=== PATIENT | male | born 1955 | race Caucasian/White ===

== ENCOUNTER → 2024-01-19 09:04 | Outpatient (REF) | payer OTHER, SELFPAY | LOC: HWRAD 09:04 | PROVIDERS: ATTENDING PHYSICIAN Nurse Practitioner Adult Health; FAMILY PHYSICIAN Family Medicine | DX: C21.0 Malignant neoplasm of anus, unspecified (principal) | CPT/HCPCS: 71260; 74177; Q9967 ==

== ENCOUNTER → 2025-05-04 08:12 | Outpatient (REF) | payer OTHER, SELFPAY | LOC: RAD 08:12 | PROVIDERS: ATTENDING PHYSICIAN Internal Medicine Hematology & Oncology; FAMILY PHYSICIAN Family Medicine; REFERRING PHYSICIAN Family Medicine | DX: C21.0 Malignant neoplasm of anus, unspecified (principal); R22.1 Localized swelling, mass and lump, neck | CPT/HCPCS: 71260; 74177; 76536; Q9967 ==

== ENCOUNTER 2025-05-22 19:42 | Inpatient (IN) | payer OTHER, SELFPAY ==
[2025-05-22 17:41] VITALS: BP 180/164
[2025-05-22 17:48] VITALS: BP 180/164
[2025-05-22 17:52] VITALS: BMI 19.4
--- NOTE | 2025-05-22 18:12 | ED.MUSCINJ ---
HPI-Injury
General
Chief Complaint: Musculo-Skeletal Complaint
Source: patient
Exam Limitations: none
Time Seen by Provider: 05/22/25 17:46
Nursing documentation reviewed up to this point in time: agreed with
History of Present Illness-Injury
Is this injury a work related problem?: No
Is pt an associate of [facility]?: No
Initial Injury comments:
6-year-old male presents with left hip pain status post fall off his porch hours or so ago was on the ground, could not get up crawled on his elbows to get through the phone, apparently had a loose bowel movement comes in via EMS with left hip pain
normal mental status abrasions to his left greater than right arm covered in loose stool does have history of colorectal cancer scheduled for radiation tomorrow did not strike his head no alcohol no blood thinners
Past History
Past History
ED Past Medical History: Cancer
Social History
Tobacco: Non-smoker
Alcohol: None
Drug: None
Employment: Not employed
Review of Systems
Review of Systems
All Other Systems: Not applicable
Constitutional: Denies fever or fatigue
Cardiac: Reports no symptoms
ABD/GI: Reports diarrhea (After he fell)
Musculoskeletal: Reports joint pain
Phy Exam
Physical Exam
Physical Exam:
Physical Exam
General: 69-year-old male clear mental status no overt signs of head or neck
Neck: No tongue bite no posterior neck
Heart: Regular
Lungs: no acute respiratory distress. clear bilaterally
Abdomen: Soft nontender
Neuro: alert and oriented. no focal neurological deficits
Skin: no rash
Psychiatric: well kept. interactive and cooperative
Extremities: There are abrasions bilateral elbows, pain with internally rotated left hip
Injury Course
Orders/Labs/Results
Orders:
Orders
05/22/25 18:03
Hip, Left 2-3 Views [CR Hip - LT w/wo Pel 2-3 Vw*] Urgent
Comment:
Reason For Exam: fall
Include a pelvis x-ray?: Yes
05/22/25 18:04
0.9% Sodium Chloride 1000 ml [Nss] 1,000 ml IV BOLUS
HYDROmorphone [Dilaudid] 1 mg IV NOW STA
Tetanus/Diphth/Acelpertussis [Adacel] 0.5 ml IM .ONCE ONE
Elbow, 2 View, Right [CR Elbow - Right Min 2 View] Urgent
Comment:
Reason For Exam: fall
Elbow, Left, 2 View [CR Elbow - Left Min 2 View] Urgent
Comment:
Reason For Exam: fall
05/22/25 18:11
Type+Screen Urgent
CPK [Creatine Phosphokinase] Urgent
Complete Blood Count/With Diff Urgent
Comprehensive Metabolic Panel Urgent
05/22/25 18:15
STOOL [C difficile Antigen & Toxins] Urgent
JEREMIAH Source: Feces/Stool
Specimen Description:
Stool Culture Urgent
JEREMIAH Source: Feces/Stool
Specimen Description:
05/22/25 18:32
ABO2 Urgent
BBK Wristband Number:
Associate notified that ABO2 has been ordered: [id number]
Date: 05/22/25
Time: 18:32
Phlebotomy Manager ID: [id number]
05/23/25 06:00
Stool Culture IN AM
JEREMIAH Source: Feces/Stool
Specimen Description:
Abnormal Lab Results
05/22/25
18:11
RBC 4.10 L 10^6/uL
(4.70-6.10)
Hct 37.4 L %
(39.0-52.0)
MCH 33.7 H pg
(27.0-31.0)
Abs Immat Gran (auto) 0.1 H 10^3/uL
(0-0.05)
Absolute Neuts (auto) 7.6 H 10^3/uL
(1.4-6.5)
Absolute Lymphs (auto) 0.7 L 10^3/uL
(1.2-3.4)
Absolute Monos (auto) 0.8 H 10^3/uL
(0.1-0.6)
Immature Gran % 0.8 H %
(0-0.5)
Neutrophils % 82.0 H %
(42.2-75.2)
Lymphocytes % 7.0 L %
(20.5-51.1)
05/22/25 18:11
MDM/Problems Addressed
Differential Diagnosis Includes:
Hip fracture pelvic fracture hip dislocation femur fracture elbow injury with abrasion dehydration doubt rhabdo
MDM/Problems Addressed:
Fall hip pain elbow abrasion
Chronic conditions affecting care: Cancer
Acute Exacerbation and/or Progression of Chronic Illness: Cancer
*Radiology
Radiology exam reviewed: radiology read reviewed
*Pulse Oximetry
SaO2: 99
Oxygen Mode of Delivery: Room air
Patient hypoxic: no
*EKG
Interpreted by ED Provider?: Yes
Interpretation: abnormal
Comparison EKG: no comparison EKG present
Heart Rate: 78
Rate: normal
Rhythm: sinus
Ischemia: non-specific ST changes
*Paunch Trimmer Interpretation
Rate: normal
Interpretation: normal
Heart Rate: 78
Rhythm: sinus
*Critical Care Note
Total Time (30-74mins, 75-104mins- exclusive of procedures): Not Applicable
Data Reviewed
Source: patient
Update Note
Update Note:
Update x-rays noted no obvious injury to the elbows is a displaced intertrochanteric fracture on the left will require admission and operative repair
ED Attending Note
-
Portions of this chart may have been created with voice recognition software.� Occasional wrong word or��sound alike� substitutions may have occurred due to the inherent limitations of voice recognition software.
Discharge Plan
Departure
Prescriptions:
No Action
Lumigan 1 DROP drops
1 drp ophthalmic (eye) HS
dorzolamide-timolol 22.3-6.8 mg/mL Drops
1 drp OPHTHALMIC (EYE) QAM AND QPM
rosuvastatin 10 mg Tablet
10 mg PO DAILY
Referrals:
UNKNOWN - PT DOES,NOT KNOW [Family Provider]
Interventions
Interventions:
ED-Musculoskeletal Assessment Last Done: 05/22/25 17:53
Discharge Date and Time
Print Language: GEORGIAN
[2025-05-22] MEDS: NSS 1000 IV (18:16)
[2025-05-22] MEDS: DILAUDID 1 MG IV (18:16)
[2025-05-22 18:31] LABS: Hematocrit 37.4 % (39.0-52.0); Hemoglobin 13.8 g/dL (13.0-18.0); Mean Corp Hgb Conc. 36.9 g/dL (33.0-37.0); Mean Corpuscular Volume 91.2 fL (80.0-94.0); Nucleated Red Blood Cells % 0 % (-); Platelet Count 237 10^3/uL (130-400); Red Cell Dist. Width 13.3 % (11.5-14.5)
[2025-05-22 18:49] LABS: AST (SGOT) 28 U/L (17-59); Albumin 4.4 g/dl (3.5-5.0); Alkaline Phosphatase 58 U/L (38-126); Blood Urea Nitrogen 3 mg/dl (9-20); Carbon Dioxide 22 mmol/L (22-30); Chloride 97 mmol/L (98-107); Estimated Creatinine Clearance 88 ml/min; Glucose 109 mg/dl (70-99); Potassium 4.2 mmol/L (3.5-5.1); Sodium 126 mmol/L (135-145); Total Protein 6.8 g/dl (6.3-8.2); eGFR > 60.00
[2025-05-22 19:00] LABS: ALT (SGPT) 21 U/L (0-50); Calcium 9.1 mg/dl (8.4-10.2)
--- NOTE | 2025-05-22 19:05 | HPS.HSE ---
Family Physician
-
Family Physician: NOT KNOW UNKNOWN - PT DOES
Chief Complaint
-
Mechanical fall
History of Present Illness
This is a 69-year-old male with past medical history of hyperlipidemia, glaucoma, presenting to the emergency department following a mechanical fall with left-sided hip pain.
Patient apparently falling off his porch a few hours prior to arrival in the emergency department. Fell on the ground. He was not able to get up but crawled on his elbows to get through to the phone. He called EMS when EMS arrived he apparently
had had a loose bowel movement. Reports left hip pain, no changes in mental status.
He has history of colorectal cancer on radiation treatment which is scheduled for tomorrow. He denies any blood thinners. He denies any head strike. There was no loss of consciousness. He denies any palpitations lightheadedness or dizziness
prior to this episode. Denies previous falls.
In the emergency department patient was hypertensive to 180, pulse 91 respiratory 24 he was satting 99% on room air and was afebrile.
Hemoglobin was 13.8, there is no leukocytosis and he has normal platelet counts. Electrolytes notable for a sodium of 126 but is otherwise unremarkable. BUN 3 creatinine 0.4.
Hip x-ray showing displaced fracture of the left femur.
Medical History
Past Medical History
Past Medical History: Reports Other
Additional Past Medical History:
History of colon cancer
Glaucoma
Past Surgical History: Reports Other (Colonoscopy with hemorrhoidectomy and polypectomy 2020)
Additional Past Surgical History:
Bilateral inguinal hernia repair
ORIF right fifth metatarsal
Social History
Tobacco: Smoker
Alcohol: Daily
Drug: None
Employment: Retired
Family History
Family History: Not pertinent
Allergies / Home Medications
Allergies reflects when Allergies were last updated in [facility].
Home Medications with original date entered in [facility]
Allergy/Medication List:
Allergies
Allergy/AdvReac Type Severity Reaction Status Date / Time
NKA - No Known Allergies Allergy Unknown Uncoded 05/22/25 17:52
Home Medications
bimatoprost 0.01 % eye drops (Lumigan) 1 drp ophthalmic (eye) HS 08/06/21
dorzolamide 22.3 mg-timolol 6.8 mg/mL eye drops 1 drp ophthalmic (eye) QAM AND QPM 03/26/23
rosuvastatin 10 mg tablet 10 mg PO DAILY 03/26/23
Review of Systems
-
Constitutional: Reports No Symptoms
EENT: Reports No Symptoms
Respiratory: Reports No Symptoms
Cardiac: Reports No Symptoms
Abdomen/GI: Reports No Symptoms
: Reports No Symptoms
Musculoskeletal: Reports Joint Pain and Joint Swelling
Skin: Reports No Symptoms
Neurological: Reports No Symptoms
Endocrine: Reports No Symptoms
Hematologic/Lymphatic: Reports No Symptoms
Psych: Reports No Symptoms
Physical Exam
Vital Signs
Vital Signs
Temp Pulse Resp BP Pulse Ox
97.8 F 91 24 180/164 99
05/22/25 17:41 05/22/25 17:41 05/22/25 17:41 05/22/25 17:48 05/22/25 18:12
Physical Exam
General: Well Developed, Well Nourished and No Apparent Distress
HEENT: NormoCephalic, Moist mucous membranes and Atraumatic
Respiratory: Clear
Cardiac: S1/S2 and Regular Rhythm; No Murmur or Rub
GI: Soft, Non Tender, Non Distended and Normal Bowel Sounds; No Organomegaly
Rectal: Deferred by Provider
Musculoskeletal: No Clubbing, No Cyanosis and No Edema
Skin: No Rash
Neuro: Nonfocal/grossly intact
Psych: Calm
Laboratory Results
-
05/22/25 18:11
05/22/25 18:11
Laboratory Results
Total Bilirubin 0.5 mg/dl (0.2-1.3) 05/22/25 18:11
AST 28 U/L (17-59) 05/22/25 18:11
ALT 21 U/L (0-50) 05/22/25 18:11
Alkaline Phosphatase 58 U/L (38-126) 05/22/25 18:11
Data Reviewed
-
Diagnostic Radiology: Report Reviewed by me
Lab Data: Labs Reviewed by me
Old Records: Reviewed
Impression/Plan
-
IMPRESSION:
69-year-old with left femur fracture following a mechanical fall. No head strike. No loss of consciousness.
PLAN:
1. HIP Fracture - Displaced left femur fracture, no thinners. Closed
- admit to med/surg
- npo after midnight
- pain control
- IV fluids
- fracture protocol
- DVT PPX w/ SCDs pending surgery
- PTOT eval
- Ortho consulted and notified
2. Hyponatremia�patient with chronic hyponatremia with a sodium of around 130, not on any medication. History of colon cancer with history of mild diarrhea. He reports no p.o. intake today despite having some alcohol to drink. Sodium 126
otherwise asymptomatic and appears to be normotensive. Cannot exclude some degree of worsening dehydration and pain contributing to his chronic hyponatremia.
� Status post 1 L normal saline bolus, continue with IV fluids
- Urine awesome's and urine sodium
- Orthostatic vital signs
- Pain control
- Suspect this is mostly-euvolemic, repeat sodium in a.m.
- N.p.o. after midnight
3. Colon cancer�status post chemo and radiation, in remission, last treatment was 20 of years ago with 6-month follow-up showing free of disease
- Follow-up appointment tomorrow needs to be counseled with [facility]
Code status - Full Code
[2025-05-22 19:15] VITALS: BP 152/79
[2025-05-22] MEDS: ADACEL 0.5 ML IM (19:16)
[2025-05-22 20:00] VITALS: BP 142/114
[2025-05-22 20:45] VITALS: BP 151/90; BMI 19.4
[2025-05-22] MEDS: D5/0.9% SODIUM CHLORIDE 1000 IV (21:53)
[2025-05-22] MEDS: SENOKOT PO (21:57)
[2025-05-22] MEDS: DILAUDID 0.5 MG IV (22:08)
[2025-05-22] MEDS: TYLENOL 650 MG PO (22:08)
--- NOTE | 2025-05-22 22:31 | PTCARENOTE ---
Rec'd pt as transfer from 2116, Pt oriented, able to answer admission questions appropriately. Does admit to daily alcohol use, stating approximately 6 beers daily with last drink being prior to admission, provider notified, MSAS initiated. Pt using
urinal appropriately. C/o level 9 pain at L hip, medicated per JAN. Denies home medications besides daily eye drops. Refuses ordered stool softeners d/t loose stool prior to admission. Oriented to room and call mata system.
[2025-05-22] MEDS: TYLENOL PO (23:04)
[2025-05-22 23:16] VITALS: BP 143/92
[2025-05-23] VITALS (13 sets, daily range): BP systolic 101–159; BP diastolic 69–102; PULSE 86–95; BMI 19.1
[2025-05-23] MEDS: TIMOPTIC 0.5% OPHTHALMIC SOLUTION 1 DROP BOTH EYES ×2 (00:14→08:10)
[2025-05-23] MEDS: XALATAN OPHTHALMIC SOLUTION 1 DROP BOTH EYES ×2 (00:14→21:10)
[2025-05-23] MEDS: TRUSOPT 2% OPHTHALMIC SOLUTION 1 DROP BOTH EYES ×2 (00:14→08:11)
[2025-05-23] MEDS: TYLENOL PO ×3 (03:14→16:06)
[2025-05-23] MEDS: D5/0.9% SODIUM CHLORIDE 1000 IV (07:16)
--- NOTE | 2025-05-23 07:47 | CON.ORTHO ---
Consultation
-
Date/Time Consultation Performed: 05/23/2025 730 AM
Consultation - Orthopedics
History
69-year-old female history of colon cancer, smoker status post fall presented to the emergency department complaints of left hip pain and inability to bear weight. He was subsequently diagnosed with left intertrochanteric femur fracture. He was
admitted to the hospitalist service. Orthopedics is consulted for further evaluation and treatment. Patient localizes pain to the left groin. Pain is made worse with direct palpation affected area and with attempted motion of the left hip.
Reports that he is being followed for colon cancer for which she received treatment about 2 and half years ago. He is not on any active current treatment. Does report smoking about 1 pack of cigarettes daily. Community ambulator. Lives with his
girlfriend.
Allergies / Home Medications
Past medical history: Colon cancer, glaucoma
Past surgical history: Colonoscopy with hemorrhoidectomy, hernia repair, ORIF right fifth metatarsal
Social history: Daily smoker, alcohol use, retired, lives with girlfriend
Family history: Not pertinent
Allergy/AdvReac Type Severity Reaction Status Date / Time
NKA - No Known Allergies Allergy Unknown Uncoded 05/22/25 17:52
�Medication �Instructions �Recorded
bimatoprost 0.01 % eye drops 1 drp ophthalmic (eye) HS 08/06/21
(Lumigan)
dorzolamide 22.3 mg-timolol 6.8 1 drp ophthalmic (eye) QAM AND QPM 03/26/23
mg/mL eye drops
rosuvastatin 10 mg tablet 10 mg PO DAILY 03/26/23
Vital Signs / Lab Results
Temp Pulse Resp BP Pulse Ox
98.4 F 105 18 138/102 98
05/23/25 07:27 05/23/25 07:27 05/23/25 07:27 05/23/25 07:27 05/23/25 07:27
05/22/25 18:11
07/06/25 18:11
10 point review systems reviewed and negative unless otherwise stated
General: Pleasant, no acute distress at rest
Musculoskeletal left lower extremity
Skin intact, no erythema or ecchymotic staining
Moderate swelling noted
No palpable ipsilateral knee effusion
Tenderness palpation of groin and lateral trochanteric flare
Positive EHL, FHL, ankle dorsiflexion, plantarflexion
Extremity shortened externally rotated
No other areas of bony tenderness palpation crepitation of long bones or joints on tertiary exam
Diagnostic studies
X-rays left hip and femur independently viewed by myself shows comminuted left intertrochanteric femur fracture
Assessment / Plan
69-year-old male history of colon cancer, daily tobacco use status post fall with left intertrochanteric femur fracture. I do long detailed discussion with the patient regarding diagnosis and treatment options. We discussed postsurgical
nonsurgical options. After discussion we mutually like to proceed with cephalomedullary nail fixation of left intertrochanteric femur fracture. We discussed risks benefits and alternatives of surgery. We discussed the usual and expected
perioperative and postoperative course. After discussion verbal informed consent was obtained. Will plan to obtain written informed consent prior to OR
N.p.o.
Nonweightbearing left lower extremity
Pain control
Please hold anticoagulation preparation for OR
Medical management per primary team
Plan: 2 OR today for operative fixation left intertrochanteric femur fracture pending OR availability medical clearance
[2025-05-23] MEDS: SENOKOT PO (08:09)
[2025-05-23] MEDS: DILAUDID 0.5 MG IV ×2 (08:10→13:08)
--- NOTE | 2025-05-23 09:53 | W.PN.HOSP.TC ---
Today's Communication/Plan
-
see A/P
Assessment / Plan
Assessment / Plan
HPI: 69-year-old with left femur fracture following a mechanical fall. No head strike. No loss of consciousness.
A/P:
# HIP Fracture - Displaced closed left femur fracture
Ortho on board, plan for OR today for operative fixation left intertrochanteric femur fracture
Pt is medically stable for urgent procedure. Benefit of procedure outweighs risk.
# Acute on chronic Hyponatremia, euvolemic
# SIADH
Acute component could be related to pain
Status post 1 L normal saline bolus, continue with IV fluids
Pain control
# History of colon cancer status post chemo and radiation, in remission
Code status - Full Code
DVT ppx: SCD for now until further directed per ortho
Anticipated Discharge: > 48 hours
Subjective/Interval History
-
Date of Service: May 23, 2025
Objective Data
-
Vital Signs:
Vital Signs
Temp Pulse Resp BP Pulse Ox
36.9 C 105 18 138/102 98
05/23/25 07:27 05/23/25 07:27 05/23/25 07:27 05/23/25 07:27 05/23/25 07:27
I&O
05/22/25 05/23/25 05/24/25
06:59 06:59 06:59
Intake Total 1280 / 1280
Output Total 3050 / 3050
Balance -177 / -1770
Review of Systems
-
History Source: Patient
Musculoskeletal: Reports Joint Pain (L hip pain)
Physical Exam
-
General: Well Developed, Well Nourished, No Apparent Distress, Comfortable and Conversant; Negative Respiratory Distress
HEENT: Normocephalic, Atraumatic, Nose Appears Normal and Ears Appear Normal; Negative Oxygen
Respiratory: Clear to Auscultation and Non Labored Respirations; Negative Accessory Resp Muscle Use
Cardiac: Regular Rhythm and S1/S2
GI: Soft, Nontender, Nondistended and Normal Bowel Sounds
Skin: Warm and Dry
Neuro: Awake, Alert, Oriented and AO x 3
Psych: Calm and Intact Judgement/Insight
Data Reviewed
-
Diagnostic Radiology: Report Reviewed by me
Labs: Labs Reviewed by me
--- NOTE | 2025-05-23 11:31 | PTCARENOTE ---
pt received prn dilaudid for L hip pain that is radiating to his foot. see MAR for documentation
--- NOTE | 2025-05-23 12:23 | CM ---
Patient seen at bedside on . Patient states that he lives with his significant other/girlfriend in a split level home. Patient PCP is Dr. Ernandez and he uses the [facility] in [place] for pharmacy needs. Patient aware of possible need for SNF
following surgery scheduled for today per nursing. However patient does not want to go to SNF and is eager to return home with his significant other and possibly PT/OT. Patient discussed consult for alcohol treatment and stated that he doesnot want
or think he needs alcohol resources or information at this time. CM will continue to follow for discharge planning needs following surgery/PT/OT assessments.
Plan; home with VN vs SNF pending therapy/physician assessments.
[2025-05-23] MEDS: TYLENOL 650 MG PO ×3 (13:08→23:40)
--- NOTE | 2025-05-23 17:42 | OR.RPT ---
Operative Report
Operative Report
Date
05/23/2025
Anesthesia Type:
General
Operative Indications:
Left comminuted intertrochanteric femur fracture with somewhat of a basicervical component
Operative Findings :
Same, some rotation of proximal fracture fragment with rotation of cephalomedullary screw
Complications:
None
Implants:
Lane gamma nail short, 10 mm x 125 degree, 100 mm cephalomedullary screw, 40 x 5 mm distal interlocking screw
Procedure and Technique:
Insertion left short cephalomedullary nail
INDICATIONS FOR PROCEDURE:
69-year-old patient presented status post mechanical fall. They were subsequently diagnosed with a peritrochanteric femur fracture. Orthopedics was consulted for further evaluation and treatment. After discussion with the patient and family,
the decision was made to proceed with operative intervention in the form of short cephalomedullary nail. A long discussion was had regarding risks and benefits of procedure. Risks include but are not limited to infection, blood loss, damage to
surrounding structures, persistent pain, loss of function, need for repeat surgery, implant cut out, periprosthetic fracture, DVT/PE and adverse risks of anesthesia. Benefits include early mobilization and fracture stabilization. After discussion
written informed consent was obtained.
OPERATIVE PROCEDURE:
The patient was seen and identified in the preoperative holding area. The operative extremity was marked and all questions were addressed with the patient. Patient was taken to the operating room and provided anesthesia by the anesthesia team.
They were placed supine on a radiolucent fracture table. The nonoperative extremity was placed in a scissored position and well padded to the contralalteral post of the fracture table. Operative extremity was placed in a well-padded fracture boot.
Biplanar fluoroscopy confirmed appropriate reduction after axial traction, adduction and slight internal rotation of the operative extremity. Operative extremity was then prepped and draped in normal sterile fashion. Timeout was performed again
identifying the operative extremity correctly. Preoperative antibiotics were addressed.
A small incision was made several fingerbreadths proximal to the greater trochanter. Sharp dissection was carried through skin and subcutaneous tissues and deep fascial layers. Guidepin was then inserted under biplanar fluoroscopic guidance
through the tip of the greater trochanter in accordance with the implant's operative technique. This was inserted to a depth just distal to the lesser trochanter. Proximal opening reamer was then utilized. A short cephalomedullary nail was then
inserted to the appropriate depth. Trocar was then inserted through the aiming arm. Sharp dissection was then carried through skin and subcutaneous tissues as well as deep fascial layers for an additional stab incision for the cephalomedullary
screw. Guidewire was inserted through the trocar into the femoral neck and head. Appropriate position was confirmed under biplanar fluoroscopy. Attention was made to minimize the tip apex distance. Measurements were obtained for the
cephalomedullary screw. Cannulated drill was then utilized to the appropriate depth followed by the insertion of cannulated cephalomedullary screw. Appropriate final position of the screw within the confines of the femoral neck and head was
confirmed again on biplanar fluoroscopy. There was noted to be some repletion of the proximal fracture fragment with insertion of the cephalomedullary screw. Final placement of the screw I did have appropriate alignment of the medial calcar
without evidence of rotational deformity additional trocar was then inserted through the aiming arm for the distal interlocking screw. Sharp dissection was carried through skin, subcutaneous tissues and deep fascial layers. Appropriate length
interlocking screw was then drilled and inserted. Final appropriate positioning was confirmed again on biplanar fluoroscopy. Satisfied with the extent of surgery, wounds were copiously irrigated with normal saline solution and closed in a layered
fashion utilizing 0 Vicryl for deep fascial layer, 2-0 Vicryl for subcu cutaneous layer and rosi for skin. Sterile dressings were applied. Anesthesia was reversed and patient was taken to the operating room in a stable condition.
Postoperative plans include weightbearing to patient's tolerance operative extremity. Recommend Lovenox renally dosed x 28 days. Plan to follow-up with myself in 2 to 3 weeks outpatient for repeat clinical assessment plan removal of rosi
Disposition:
PACU stable condition
[2025-05-23] MEDS: D5/0.9% SODIUM CHLORIDE IV (18:14)
[2025-05-23] MEDS: NSS 1000 IV (19:53)
--- NOTE | 2025-05-23 19:57 | PTCARENOTE ---
pt to OR this afternoon at 1600 for L hip fx repair. CHD wipes complete, new gown and linens placed. IVF sent down with pt as well as chart to OR. report called to Uli.
[2025-05-23] MEDS: SENOKOT 17.2 MG PO (21:08)
[2025-05-23] MEDS: COLACE 100 MG PO (21:08)
[2025-05-23] MEDS: TRUSOPT 2% OPHTHALMIC SOLUTION BOTH EYES ×2 (21:09→21:11)
[2025-05-23] MEDS: TIMOPTIC 0.5% OPHTHALMIC SOLUTION BOTH EYES (21:10)
[2025-05-23] MEDS: ANCEF 5 IV (23:40)
[2025-05-24] VITALS (7 sets, daily range): BP systolic 115–148; BP diastolic 67–84; PULSE 80–108; O2SAT 99
[2025-05-24] MEDS: D5/0.9% SODIUM CHLORIDE IV (00:08)
[2025-05-24] MEDS: NSS 1000 IV (04:35)
[2025-05-24] MEDS: TYLENOL PO ×4 (04:35→23:47)
[2025-05-24 07:03] LABS: Blood Urea Nitrogen 5 mg/dl (9-20); Calcium 8.7 mg/dl (8.4-10.2); Carbon Dioxide 23 mmol/L (22-30); Chloride 107 mmol/L (98-107); Estimated Creatinine Clearance 87 ml/min; Glucose 106 mg/dl (70-99); Magnesium 2.3 mg/dl (1.6-2.3); Potassium 3.9 mmol/L (3.5-5.1); Sodium 133 mmol/L (135-145); eGFR > 60.00
[2025-05-24 08:23] LABS: Hematocrit 30.0 % (39.0-52.0); Hemoglobin 10.8 g/dL (13.0-18.0); Mean Corp Hgb Conc. 36.0 g/dL (33.0-37.0); Mean Corpuscular Volume 94.0 fL (80.0-94.0); Platelet Count 198 10^3/uL (130-400); Red Cell Dist. Width 13.5 % (11.5-14.5)
[2025-05-24] MEDS: ANCEF 5 IV (08:49)
[2025-05-24] MEDS: COLACE 100 MG PO (08:50)
[2025-05-24] MEDS: LOVENOX 40 MG SC (08:53)
[2025-05-24] MEDS: SENOKOT PO ×2 (08:54→19:54)
[2025-05-24] MEDS: TRUSOPT 2% OPHTHALMIC SOLUTION 1 DROP BOTH EYES (08:56)
[2025-05-24] MEDS: TIMOPTIC 0.5% OPHTHALMIC SOLUTION BOTH EYES ×2 (08:59→19:55)
--- NOTE | 2025-05-24 10:08 | W.PN.HOSP.TC ---
Today's Communication/Plan
-
see A/P
Assessment / Plan
Assessment / Plan
HPI: 69-year-old with left femur fracture following a mechanical fall. No head strike. No loss of consciousness.
A/P:
# HIP Fracture - Displaced closed left femur fracture
s/p insertion left short cephalomedullary nail 05/23 for displaced closed left femur fracture
Lovenox SQ for DVT ppx
PT OT eval post op
# Acute blood loss anemia post op
Hgb 10.8 today from 13.8
Monitor Hgb
# Suspect reactive leucocytosis
Monitor WBC
# Acute on chronic Hyponatremia, euvolemic
# SIADH
Acute component could be related to pain
s/p IVF
Sodium level improved to 133 today
Pain control
# History of colon cancer status post chemo and radiation, in remission
Code status - Full Code
DVT ppx: Lovenox SQ
DW RN
Anticipated Discharge: Within 24 hours
Subjective/Interval History
-
Date of Service: May 24, 2025
Objective Data
-
Labs:
Laboratory Results
05/24/25
06:05
WBC 12.0 H
Hgb 10.8 L D
Hct 30.0 L
Plt Count 198
Sodium 133 L
Potassium 3.9
Chloride 107
Carbon Dioxide 23
BUN 5 L
Creatinine 0.4 L
Glucose 106 H
Calcium 8.7
Vital Signs:
Vital Signs
Temp Pulse Resp BP Pulse Ox
36.7 C 87 18 136/67 98
05/24/25 07:31 05/24/25 07:31 05/24/25 07:31 05/24/25 07:31 05/24/25 07:31
I&O
05/23/25 05/24/25 05/25/25
06:59 06:59 06:59
Intake Total 1280 / 1280 2500 / 2500
Output Total 3050 / 3050 1725 / 1725
Balance -1770 / -1770 775 / 775
Review of Systems
-
History Source: Patient
All other systems: Reviewed and negative
Physical Exam
-
General: Well Developed, Well Nourished, No Apparent Distress, Comfortable and Conversant; Negative Respiratory Distress
HEENT: Normocephalic, Atraumatic, Nose Appears Normal and Ears Appear Normal; Negative Oxygen
Respiratory: Clear to Auscultation and Non Labored Respirations; Negative Accessory Resp Muscle Use
Cardiac: Regular Rhythm and S1/S2
GI: Soft, Nontender, Nondistended and Normal Bowel Sounds
Skin: Warm and Dry
Neuro: Awake, Alert, Oriented and AO x 3
Psych: Calm and Intact Judgement/Insight
Data Reviewed
-
Diagnostic Radiology: Report Reviewed by me
Labs: Labs Reviewed by me
--- NOTE | 2025-05-24 12:12 | PTCARENOTE ---
Patient refused schedule am and pm dose of Tylenol as ordered. Denies pain at this time. Pain level on pain scale #2. Pt educated on Pain management. Call mata within reach. No s/s of distress noted. Plan of care ongoing.
--- NOTE | 2025-05-24 14:12 | CM ---
Addendum entered by Kelsey Self 05/24/25 14:29:
[facility] liaison to assess patient and confirm ability to follow
Original Note:
Patient seen at bedside on [address]. Patient plan is for discharge home with [facility]. Therapy is recommending home with [facility] and requested scripts for commode and walker. CM updated physician and will text the liaison with [facility]. CM will continue to
follow for discharge planning needs.
Plan; home with [facility]; pending confirmation and walker/commode.
--- NOTE | 2025-05-24 14:42 | VNURNOTE ---
Home Health Liaison met with patient at bedside to discuss [facility] nurse/therapy, visits, schedule and homebound status. Patient is agreeable and understands that visits at home will be 2-3 x per week to assess and teach medical management. Patient is
aware that [facility] will contact them for start of care in 1-2 days after discharge from . Pt aware that he will receive a rolling walker and commode prior to DC.
[facility] referral completed in [facility].
[2025-05-24] MEDS: TYLENOL 650 MG PO ×2 (16:09→19:53)
[2025-05-24] MEDS: COLACE PO (19:54)
[2025-05-24] MEDS: TRUSOPT 2% OPHTHALMIC SOLUTION BOTH EYES (19:55)
[2025-05-24] MEDS: XALATAN OPHTHALMIC SOLUTION 1 DROP BOTH EYES (19:55)
--- NOTE | 2025-05-24 21:39 | W.PN.ORTHO ---
Today's Communication / Plan
-
69-year-old male postop day 1 status post left cephalomedullary nail insertion for peritrochanteric femur fracture doing well
Weightbearing as tolerated left lower extremity
PT OT
Pain control
Medical management per primary team
DVT prophylaxis: Recommend Lovenox renally dosed x 28 days
Plan: Follow-up outpatient with myself in 2 to 3 weeks for repeat clinical assessment plan removal of rosi
Subjective
.
.:
Patient resting comfortably in bed this evening. Reportedly was able to walk distance today. Pain is improved.
Vital Signs and Labs
.
Vital Signs and Labs:
Lab Results
05/24/25 06:05
05/24/25 06:05
Temp Pulse Resp BP Pulse Ox
98.4 F 93 16 148/74 99
05/24/25 16:10 05/24/25 16:10 05/24/25 16:10 05/24/25 16:10 05/24/25 16:10
Physical Exam
-
Musculoskeletal left lower extremity
Dressings in place with mild bloody drainage moderate swelling thigh
Positive EHL, FHL, ankle dorsiflexion, plantarflexion
Brisk cap refill
Sensation tact light touch all distributions distally
[2025-05-25] MEDS: TYLENOL PO ×3 (04:28→12:35)
[2025-05-25 05:54] LABS: Hematocrit 26.6 % (39.0-52.0); Hemoglobin 9.7 g/dL (13.0-18.0); Mean Corp Hgb Conc. 36.5 g/dL (33.0-37.0); Mean Corpuscular Volume 94.7 fL (80.0-94.0); Platelet Count 189 10^3/uL (130-400); Red Cell Dist. Width 13.6 % (11.5-14.5)
[2025-05-25 06:22] LABS: Blood Urea Nitrogen 4 mg/dl (9-20); Calcium 8.8 mg/dl (8.4-10.2); Carbon Dioxide 25 mmol/L (22-30); Chloride 104 mmol/L (98-107); Estimated Creatinine Clearance 87 ml/min; Glucose 101 mg/dl (70-99); Potassium 3.7 mmol/L (3.5-5.1); Sodium 132 mmol/L (135-145); eGFR > 60.00
[2025-05-25 08:18] VITALS: BP 148/84
[2025-05-25 08:19] VITALS: BP 134/79; BP 144/90; BP 148/84; PULSE 109; PULSE 94; PULSE 96
[2025-05-25] MEDS: COLACE PO (08:22)
[2025-05-25] MEDS: TRUSOPT 2% OPHTHALMIC SOLUTION 1 DROP BOTH EYES (08:24)
[2025-05-25] MEDS: LOVENOX 40 MG SC (08:25)
[2025-05-25] MEDS: TIMOPTIC 0.5% OPHTHALMIC SOLUTION BOTH EYES (08:27)
[2025-05-25] MEDS: SENOKOT PO (08:27)
--- NOTE | 2025-05-25 09:43 | W.PN.HOSP.TC ---
Addendum entered and electronically signed by Deb Mtz MD 05/25/25 13:39:
total DC time 36 min
Original Note:
Today's Communication/Plan
-
see A/P
DC today with HH
Assessment / Plan
Assessment / Plan
HPI: 69-year-old with left femur fracture following a mechanical fall. No head strike. No loss of consciousness.
A/P:
# HIP Fracture - Displaced closed left femur fracture
s/p insertion left short cephalomedullary nail 05/23 for displaced closed left femur fracture
Lovenox SQ for DVT ppx during hospital stay
PT OT cleared for HH
# Acute blood loss anemia post op
Hgb 9.7 today from 13.8 preop
Monitor Hgb, check CBC in 1 week, result to PCP
# Reactive leucocytosis, resolved
# Acute on chronic Hyponatremia, euvolemic
# SIADH
Acute component could be related to pain
s/p IVF
Sodium level 132 today
Pain control
# History of colon cancer status post chemo and radiation, in remission
Code status - Full Code
DVT ppx: Lovenox SQ
DW RN
Anticipated Discharge: Today
Subjective/Interval History
-
Date of Service: May 25, 2025
Objective Data
-
Labs:
Laboratory Results
05/25/25
05:32
WBC 10.5
Hgb 9.7 L
Hct 26.6 L
Plt Count 189
Sodium 132 L
Potassium 3.7
Chloride 104
Carbon Dioxide 25
BUN 4 L
Creatinine 0.4 L
Glucose 101 H
Calcium 8.8
Vital Signs:
Vital Signs
Temp Pulse Resp BP Pulse Ox
36.7 C 94 18 148/84 99
05/25/25 08:18 05/25/25 08:18 05/25/25 08:18 05/25/25 08:18 05/25/25 08:18
I&O
05/24/25 05/25/25 05/26/25
06:59 06:59 06:59
Intake Total 2500 / 2500 1800 / 1800
Output Total 1725 / 1725 1250 / 1250 200 / 200
Balance 775 / 775 550 / 550 -200 / -200
Review of Systems
-
History Source: Patient
All other systems: Reviewed and negative
Physical Exam
-
General: Well Developed, Well Nourished, No Apparent Distress, Comfortable and Conversant; Negative Respiratory Distress
HEENT: Normocephalic, Atraumatic, Nose Appears Normal and Ears Appear Normal; Negative Oxygen
Respiratory: Clear to Auscultation and Non Labored Respirations; Negative Accessory Resp Muscle Use
Cardiac: Regular Rhythm and S1/S2
GI: Soft, Nontender, Nondistended and Normal Bowel Sounds
Skin: Warm and Dry
Neuro: Awake, Alert, Oriented and AO x 3
Psych: Calm and Intact Judgement/Insight
Data Reviewed
-
Diagnostic Radiology: Report Reviewed by me
Labs: Labs Reviewed by me
--- NOTE | 2025-05-25 10:19 | CM ---
CM following re: discharge planning.
Reviewed pt's chart, met with pt.
Discharge order noted.
Pt is aware, expressed his agreement with discharge and pt stated his girlfriend will transport home.
PT to issue a walker and a commode. RN has a script. OT Juliette is notified.
Please fax discharge instructions to [facility] at [phone]
D/C plan: home with [facility] and family support. Girlfriend to transport.
[2025-05-25 12:41] VITALS: BP 138/79
--- NOTE | 2025-05-25 13:23 | W.DCSUMMARY ---
Discharge Summary
Discharge Data
Date of Admission: 05/22/25
Date of Discharge: 05/25/25
-
Pending Results: No
Hospital Course
Principal Diagnosis:
Displaced closed left femur fracture status post insertion left short cephalomedullary nail 05/23
Acute blood loss anemia post op, hemoglobin on discharge at 9.7
Acute on chronic Hyponatremia, 2/2 SIADH
Chronic Diagnoses:�
History of colon cancer status post chemo and radiation, in remission
Consultations:�
Orthopedic surgery
Procedures:�
Insertion of left short cephalomedullary nail 05/23 for displaced closed left femur fracture
Clinical course:�
This is a 69-year-old male with past medical history as stated above, who presented with mechanical fall and left femur fracture.
Problem 1:
Displaced closed left femur fracture.
He underwent insertion of left short cephalomedullary nail on 05/23.
He can continue with aspirin full dose at 325 mg daily for 30 days for DVT prophylaxis.
He was cleared by PT OT to return home with home health.
Of note, his hemoglobin did drop from 13.8 to 9.7 on the day of discharge. This was likely due to acute blood loss anemia postop. He can check repeat CBC in 1 week, result to his PCP.
Problem 2:
Acute on chronic hyponatremia, euvolemic, due to SIADH.
His sodium level was at 132 on the day of discharge.
As for the rest of his medical problems, they were stable during his hospital stay.
Discharge Plan
-
Patient Disposition: Home with Home Care
Discharge Diagnosis/Procedures: L HIP Fracture (displaced closed left femur fracture) status post insertion left short cephalomedullary nail 05/23/2025
Condition: Good
Diet: As tolerated
Activity: As tolerated
Driving Restrictions: As prior to admission
Blood Work: CBC in 1 week, result to PCP
Referrals:
UNKNOWN - PT DOES,NOT KNOW [Family Provider] - in less than 1 week
Prescriptions:
New
acetaminophen [Tylenol Extra Strength] 500 mg tablet
500 mg PO Q6H PRN (Reason: Pain) Qty: 20 0RF
aspirin 325 mg tablet
325 mg PO DAILY Qty: 30 0RF
Continued
Lumigan 1 DROP drops
1 drp ophthalmic (eye) HS
Rx Instructions:
Both eyes
dorzolamide-timolol 22.3-6.8 mg/mL Drops
1 drp OPHTHALMIC (EYE) QAM AND QPM
rosuvastatin 10 mg Tablet
10 mg PO DAILY
Patient Comments:
pt states he doesn't take
Discharge Orders:
Discharge Patient (As Directed); Ordered 05/25/25
Ordered By: Deb Mtz
Discharge Date and Time
Print Language: GABONESE
== END 2025-05-25 13:56 | disposition home health service (06) | DRG 481 ==
LOC: 2 NORTH 19:42
PROVIDERS: ADMITTING PHYSICIAN Internal Medicine; ATTENDING PHYSICIAN Internal Medicine; CONSULT PHYSICIAN Orthopaedic Surgery; EMERGENCY PHYSICIAN Emergency Medicine
PROC: 0QS704Z Reposition Left Upper Femur with Internal Fixation Device, Open Approach (ICD-10-PCS; 2025-05-23)
DX: S72.142A Displaced intertrochanteric fracture of left femur, initial encounter for closed fracture (principal); D62 Acute posthemorrhagic anemia; E22.2 Syndrome of inappropriate secretion of antidiuretic hormone; W19.XXXA Unspecified fall, initial encounter
CPT/HCPCS: 73070; 73502; 73552; 76000; 80048; 80053; 82550; 83735; 83935; 84300; 85025; 85027; 86850; 86900; 86901; 87045; 87046; 87324; 87427; 87449; 90715; 96361; 96374; 97116; 97162; 97166; 97535; 99285; 99406; C1713

== ENCOUNTER → 2025-10-12 12:15 | Outpatient (REF) | payer OTHER, SELFPAY ==
[2025-10-12 12:30] VITALS: BP 142/73; BP_SYST 78
[2025-10-12 13:30] VITALS: BP 142/73
== END ==
LOC: RADI 12:15
PROVIDERS: ATTENDING PHYSICIAN Physician Assistant
DX: E04.1 Nontoxic single thyroid nodule (principal)
CPT/HCPCS: 10005; 88173